=== PATIENT | male | born 1935 | race Caucasian/White ===

== ENCOUNTER 2018-02-19 13:32 | Outpatient (CLI) | payer MEDICARE, SELFPAY ==
[2018-02-19 14:27] LABS: Abs Immature Grans 0.01 k/cumm (0.0-0.09); Absolute Basophil Count 0.05 k/cumm (0.0-0.2); Absolute Eosinophil Count 0.14 k/cumm (0.0-0.7); Absolute Lymphocyte Count 1.27 k/cumm (1.2-3.4); Absolute Monocyte Count 0.44 k/cumm (0.11-0.7); Absolute Neutrophil Count 3.41 k/cumm (1.2-6.7); Basophils % 0.9; Eosinophils % 2.6; HCT 39.8 % (40.0-50.0); HGB 14.2 g/dL (13.5-17.5); Immature Grans % 0.2; Lymphocytes % 23.9; Mean Corp. HGB Concentration 35.7 g/dL (32.0-36.0); Mean Corpuscular Hemoglobin 38.1 pg (27.0-33.0); Mean Corpuscular Volume 106.7 fL (80-95); Mean Platelet Volume 10.3 fL (8.0-11.0); Monocytes % 8.3; Neutrophils % 64.1; Platelet Count 167 x1000/uL (130-400); RBC 3.73 m/cumm (4.50-6.00); White Blood Cell Count 5.32 k/cumm (4.4-10.8)
[2018-02-19 15:07] LABS: ALT 44 U/L (12-78); AST 30 U/L (15-37); Alkaline Phosphatase 71 U/L (46-116); Anion Gap 8.2 mmol/L (3-11); BUN 17 mg/dL (7-18); Bilirubin, Total 0.7 mg/dL (0.2-1.0); CO2 27.8 mmol/L (21.0-32.0); CREATININE 0.99 mg/dL (0.70-1.30); Calcium 9.1 mg/dL (8.5-10.1); Chloride 104 mmol/L (98-107); Glucose 103 mg/dL (70-100); LDH 196 U/L (85-227); Potassium 4.8 mmol/L (3.5-5.1); Sodium 140 mmol/L (136-145); Total Protein 6.7 g/dL (6.4-8.2); Uric Acid 5.4 mg/dL (3.5-7.2)
== END 2018-02-19 13:33 ==
PROVIDERS: Visit Provider Internal Medicine Hematology & Oncology
DX: D75.1 Secondary polycythemia (principal); F32.4 Major depressive disorder, single episode, in partial remission
CPT/HCPCS: 36415; 80053; 83615; 84550; 85025

== ENCOUNTER 2018-03-20 11:59 | Outpatient (CLI) | payer MEDICARE, SELFPAY ==
[2018-03-20 12:45] LABS: Absolute Basophil Count 0.03 k/cumm (0.0-0.2); Absolute Eosinophil Count 0.06 k/cumm (0.0-0.7); Absolute Lymphocyte Count 1.13 k/cumm (1.2-3.4); Absolute Neutrophil Count 3.33 k/cumm (1.2-6.7); Basophils % 0.6; Eosinophils % 1.2; HGB 14.2 g/dL (13.5-17.5); Lymphocytes % 22.8; Mean Corp. HGB Concentration 34.6 g/dL (32.0-36.0); Mean Corpuscular Hemoglobin 37.5 pg (27.0-33.0); Mean Corpuscular Volume 108.2 fL (80-95); Mean Platelet Volume 10.4 fL (8.0-11.0); Monocytes % 8.1; Neutrophils % 67.3; Platelet Count 169 x1000/uL (130-400); RBC 3.79 m/cumm (4.50-6.00); RBC Distribution Width 13.7 % (11.8-14.1); White Blood Cell Count 4.95 k/cumm (4.4-10.8)
[2018-03-20 13:07] LABS: ALT 30 U/L (12-78); AST 22 U/L (15-37); Albumin 3.9 g/dL (3.4-5.0); Alkaline Phosphatase 65 U/L (46-116); Anion Gap 2.4 mmol/L (3-11); BUN 18 mg/dL (7-18); Bilirubin, Total 0.6 mg/dL (0.2-1.0); CO2 30.6 mmol/L (21.0-32.0); CREATININE 0.82 mg/dL (0.70-1.30); Chloride 105 mmol/L (98-107); Glucose 70 mg/dL (70-100); LDH 185 U/L (85-227); Potassium 4.2 mmol/L (3.5-5.1); Sodium 138 mmol/L (136-145); Total Protein 6.9 g/dL (6.4-8.2); Uric Acid 4.9 mg/dL (3.5-7.2)
== END 2018-03-20 12:00 ==
PROVIDERS: Visit Provider Internal Medicine Hematology & Oncology
DX: D75.1 Secondary polycythemia (principal); F32.4 Major depressive disorder, single episode, in partial remission
CPT/HCPCS: 36415; 80053; 83615; 84550; 85025